=== PATIENT | female | born 1950 | race Caucasian/White ===

== ENCOUNTER 2017-07-24 13:43 | Emergency (ER) | payer MEDICARE ==
[2017-07-24 14:44] VITALS: BP 142/59
--- NOTE | 2017-07-24 15:03 | UC ---
Back Pain HPI - HPI Summary HPI Summary: 66 YEAR OLD FEMALE PRESENTS WITH COMPLAINS OF RIGHT SI JOINT. - History of Current Complaint Chief Complaint: UCBackPain Stated Complaint: BACK/GROIN PAIN Time Seen by Provider: 07/24/17 14:58 Hx Obtained From: Patient Onset/Duration: Sudden Onset Timing: Constant Severity Initially: Moderate Severity Currently: Moderate Pain Scale Used: 0-10 Numeric - 5 Character: Sharp Aggravating: Movement, Lifting, Bending Alleviating: Rest Associated Signs And Symptoms: Positive: Negative - Allergies/Home Medications Allergies/Adverse Reactions: Allergies Allergy/AdvReac Type Severity Reaction Status Date / Time STEROIDS Allergy Difficulty Uncoded 07/24/17 14:44 Breathing/Wheezing Home Medications: Home Medications Aspirin [Aspirin 81 MG TAB] 81 mg PO DAILY 07/24/17 [History Confirmed 07/24/17] DULoxetine DR CAP* [Cymbalta CAP*] 30 mg PO DAILY 07/24/17 [History Confirmed ] Hydrochlorothiazide TAB* [Hydrodiuril TAB*] 12.5 mg PO DAILY 07/24/17 [History Confirmed 07/24/17] Losartan TAB* [Cozaar TAB*] 100 mg PO DAILY 07/24/17 [History Confirmed 07/24/17 ] Metoprolol Tartrate TAB* [Lopressor TAB*] 50 mg PO DAILY 07/24/17 [History Confirmed 07/24/17] Pravastatin Sodium [Pravachol] 40 mg PO DAILY 07/24/17 [History Confirmed ] PMH/Surg Hx/FS Hx/Imm Hx Previously Healthy: Yes - Surgical History Surgical History: Yes Surgery Procedure, Year, and Place: L5 NOAH DISC, TITANIUM PLATE IN NECK, ZULEMA SHOULDER SURGERY - Family History Known Family History: Positive: None - Social History Alcohol Use: None Substance Use Type: None Smoking Status (MU): Never Smoked Tobacco Review of Systems Constitutional: Negative Skin: Negative Eyes: Negative ENT: Negative Respiratory: Negative Cardiovascular: Negative Gastrointestinal: Negative Genitourinary: Negative Motor: Other - RIGHT SI INFLAMMATION Neurovascular: Negative Musculoskeletal: Negative Neurological: Negative Psychological: Negative All Other Systems Reviewed And Are Negative: Yes Physical Exam Triage Information Reviewed: Yes Vital Signs: Initial Vital Signs Temp 37.1 C 07/24/17 14:39 Pulse 61 07/24/17 14:39 Resp 16 07/24/17 14:39 BP 142/59 07/24/17 14:39 Pulse Ox 100 07/24/17 14:39 Eye Exam: Normal ENT Exam: Normal Dental Exam: Normal Neck exam: Normal Neck: Positive: 1 Respiratory Exam: Normal Cardiovascular Exam: Normal Abdominal Exam: Normal Musculoskeletal: Positive: Other: - RIGHT SI JOINT INFLAMMATION Neurological Exam: Normal Psychological Exam: Normal Skin Exam: Normal Back Pain Course/Dx - Differential Dx/Diagnosis Provider Diagnoses: RI SI JOINT PAIN Discharge - Discharge Plan Condition: Stable Disposition: HOME Prescriptions: Meloxicam(NF) [Mobic(NF)] 7.5 mg PO BID #30 tab Methocarbamol TAB* [Robaxin 500 MG TAB*] 500 mg PO TID PRN #30 tab PRN Reason: Spasms - Back Patient Education Materials: Low Back Strain (ED) Referrals: Marcial Joseph MD [Medical Doctor] - Allan Gentile PA [Primary Care Provider] -
== END 2017-07-24 15:13 | disposition home or self-care (01) ==
LOC: UCCORT 13:43
DX: M53.3 Sacrococcygeal disorders, not elsewhere classified (principal); Z79.82 Long term (current) use of aspirin
CPT/HCPCS: 99212; G0463

== ENCOUNTER 2019-04-30 09:34 | Emergency (ER) | payer MEDICARE ==
[2019-04-30 09:50] VITALS: BP 137/52
--- NOTE | 2019-04-30 10:20 | UC ---
UC General HPI - HPI Summary HPI Summary: itchy rash on back this am. having a fibromyalgia flare and thinks this is related. no fever. - History of Current Complaint Chief Complaint: UCSkin Stated Complaint: RASH Time Seen by Provider: 04/30/19 09:47 Hx Obtained From: Patient Timing: Constant Pain Intensity: 10 - Allergy/Home Medications Allergies/Adverse Reactions: Allergies Allergy/AdvReac Type Severity Reaction Status Date / Time STEROIDS Allergy Difficulty Uncoded 04/30/19 09:51 Breathing/Wheezing PMH/Surg Hx/FS Hx/Imm Hx - Additional Past Medical History Additional PMH: Fibromyalgia Endocrine History: Dyslipidemia Cardiovascular History: Hypertension - Surgical History Surgical History: Yes Surgery Procedure, Year, and Place: L5 NOAH DISC, TITANIUM PLATE IN NECK, ZULEMA SHOULDER SURGERY - Family History Known Family History: Positive: None - Social History Alcohol Use: None Substance Use Type: None Smoking Status (MU): Never Smoked Tobacco - Immunization History Vaccination Up to Date: Yes Review of Systems All Other Systems Reviewed And Are Negative: Yes Constitutional: Negative: Fever Skin: Positive: Rash Motor: Negative: Decreased ROM Musculoskeletal: Positive: Myalgia - chronic Physical Exam Triage Information Reviewed: Yes Appearance: Well-Appearing Vital Signs: Initial Vital Signs Temp 98.3 F 04/30/19 09:41 Pulse 69 04/30/19 09:41 Resp 18 04/30/19 09:41 BP 137/52 04/30/19 09:41 Pulse Ox 100 04/30/19 09:41 Vital Signs Reviewed: Yes Eyes: Positive: Conjunctiva Clear Respiratory: Positive: No respiratory distress Musculoskeletal: Positive: ROM Intact, No Edema Neurological: Positive: Alert Psychological: Positive: Age Appropriate Behavior Skin Exam: Normal Skin: Positive: Rashes - Crane oval spots with some fine scale on surface. no peeling or blistering and not petechial. Course/Dx - Differential Dx - Multi-Symptom Differential Diagnoses: Other - tinea versicolor vs pityriasis rosea. will tx with topical antifungal and pt advised to f/u with dermatology, pt to call. no concernf for bacterial infection or infestation. - Diagnoses Provider Diagnosis: Rash Discharge - Sign-Out/Discharge Documenting (check all that apply): Patient Departure All imaging exams completed and their final reports reviewed: No Studies - Discharge Plan Condition: Stable Disposition: HOME Prescriptions: Ketoconazole 120 ml TP DAILY 14 Days #1 shampoo Patient Education Materials: Tinea Versicolor (ED) Referrals: Ameya Rodrigez MD [Medical Doctor] - - Billing Disposition and Condition Condition: STABLE Disposition: Home
== END 2019-04-30 10:33 | disposition home or self-care (01) ==
LOC: UCCORT 09:34
DX: R21 Rash and other nonspecific skin eruption (principal); I10 Essential (primary) hypertension
CPT/HCPCS: 99212; G0463

== ENCOUNTER 2019-06-02 10:26 | Emergency (ER) | payer MEDICARE ==
[2019-06-02] MEDS ORDERED: Aspirin 81 mg CHEW TAB* 81 MG TAB.CHEW PO ONE (10:50)
[2019-06-02] MEDS ORDERED: NS 0.9% 1000 ML** 1,000 ML IV SCH (11:00)
[2019-06-02 11:21] VITALS: BP 142/75
--- NOTE | 2019-06-02 11:22 | UC ---
Cardiac HPI - HPI Summary HPI Summary: Pt presents c/o gradual onset of anterior left side chest pain that worsens with movement. Pt states that she was lifting heavy boxes yesterday and chest pain began after that. Pt has hx angina and WPW, had cardiac ablation. Pt states pain radiates down left arm, pt states that it "hurts to take a deep breath". - History of Current Complaint Chief Complaint: UCUpperExtremity Stated Complaint: CHEST/BACK PAIN Time Seen by Provider: 06/02/19 10:35 Hx Obtained From: Patient Onset/Duration: Sudden Onset, Lasting Days, Still Present, Worse Since - onset Timing: Constant Initial Severity: Moderate Current Severity: Severe Pain Intensity: 10 Chest Pain Location: Upper Sternal, Left Anterior Character: Tightness, Heaviness, Pressure/Squeezing Aggravating Factor(s): Exertion, Movement, Deep Breaths Alleviating Factor(s): Rest, Position Associated Signs & Symptoms: Positive: Chest Pain - Risk Factors Pulmonary Embolism Risk Factors: Negative Cardiac Risk Factors: CAD Atrial Fibrillation: [id number]-[id number] Syndrome TAD Risk Factors: Negative - Allergy/Home Medications Allergies/Adverse Reactions: Allergies Allergy/AdvReac Type Severity Reaction Status Date / Time STEROIDS Allergy Difficulty Uncoded 06/02/19 10:31 Breathing/Wheezing PMH/Surg Hx/FS Hx/Imm Hx Previously Healthy: Yes Cardiovascular History: Cardiac Disease, Other - WPW, angina, and ablation - Surgical History Surgical History: Yes Surgery Procedure, Year, and Place: L5 NOAH DISC, TITANIUM PLATE IN NECK, ZULEMA SHOULDER SURGERY. cadiac ablation - Family History Known Family History: Positive: Cardiac Disease - Social History Occupation: Retired Lives: With Family Alcohol Use: None Substance Use Type: None Smoking Status (MU): Never Smoked Tobacco Have You Smoked in the Last Year: No - Immunization History Vaccination Up to Date: Yes Review of Systems All Other Systems Reviewed And Are Negative: Yes Constitutional: Positive: Negative Skin: Positive: Negative Eyes: Positive: Negative ENT: Positive: Negative Respiratory: Positive: Negative Cardiovascular: Positive: Chest Pain Gastrointestinal: Positive: Negative Genitourinary: Positive: Negative Motor: Positive: Negative Neurovascular: Positive: Negative Musculoskeletal: Positive: Myalgia Neurological: Positive: Negative Psychological: Positive: Negative Is Patient Immunocompromised?: No Physical Exam Triage Information Reviewed: Yes Appearance: Pain Distress, Obese Vital Signs: Initial Vital Signs Temp 97.9 F 06/02/19 10:33 Pulse 66 06/02/19 10:33 Resp 18 06/02/19 10:33 BP 148/71 06/02/19 10:33 Pulse Ox 99 06/02/19 10:33 Vital Signs Reviewed: Yes Eye Exam: Normal ENT Exam: Normal Dental Exam: Normal Neck exam: Normal Respiratory Exam: Normal Cardiovascular Exam: Normal Cardiovascular: Positive: RRR Musculoskeletal: Positive: Other: - reproducible pain left upper anterior chest wall Neurological Exam: Normal Psychological Exam: Normal Skin Exam: Normal - Assessment/Plan Course Of Treatment: ECG demonstrated new changes demonstrated left bundle branch block. this is new in comparison to 2003 ecg Pt was sent via ambulance to [facility] ER - Differential Diagnoses - Chest Pain Differential Diagnosis/HQI/PQRI: Acute CA, ACS, Angina - Differential Diagnoses - Hypertension Differential Diagnosis/HQI PQRI: Angina - Differential Diagnoses - Palpitations Differential Diagnosis/HQI/PQRI: Other - Clinical Impression Provider Diagnosis: Chest pain - Physician Notifications Discussed Patient Care With: Farhana López - accepted pt Time Discussed With Above Provider: 11:54 Discharge - Sign-Out/Discharge Documenting (check all that apply): Patient Departure All imaging exams completed and their final reports reviewed: No Studies - Discharge Plan Condition: Stable Disposition: TRANS HIGHER LVL OF CARE FAC Patient Education Materials: Chest Pain (ED) Referrals: Allan Gentile PA [Primary Care Provider] - As Soon As Possible - Billing Disposition and Condition Condition: STABLE Disposition: Trans Higher Lvl of Care Fac - Attestation Statements Provider Attestation: I was available for consult. This patient was seen by the ATIF. The patient was not presented to, seen by, or examined by me. -Marni
== END 2019-06-02 11:11 | disposition short-term general hospital (02) ==
LOC: UCCORT 10:26
DX: R07.89 Other chest pain (principal); I44.7 Left bundle-branch block, unspecified; Z88.8 Allergy status to other drugs, medicaments and biological substances
CPT/HCPCS: 93005; 99213; A9270-GY; G0463